=== PATIENT | female | born 1955 | race Caucasian/White ===

== ENCOUNTER → 2018-10-10 | Outpatient (CLI) | payer BC | LOC: PT 11:00 | DX: Z47.1 Aftercare following joint replacement surgery (principal); Z96.652 Presence of left artificial knee joint ==

== ENCOUNTER 2018-11-27 11:15 | Outpatient (RCR) | payer BC | END 2018-11-27 12:00 | disposition still patient (30) | LOC: PT 11:15 | DX: Z47.1 Aftercare following joint replacement surgery (principal); Z96.652 Presence of left artificial knee joint ==

== ENCOUNTER 2019-05-28 11:00 | Outpatient (RCR) | payer BC | END 2019-06-01 | disposition still patient (30) | LOC: PT | DX: S82.002D Unspecified fracture of left patella, subsequent encounter for closed fracture with routine healing (principal); Z98.890 Other specified postprocedural states ==

== ENCOUNTER 2019-07-18 11:00 | Outpatient (RCR) | payer BC | END 2019-07-18 11:30 | disposition still patient (30) | LOC: PT 11:00 | DX: Z48.89 Encounter for other specified surgical aftercare (principal); Z98.890 Other specified postprocedural states ==

== ENCOUNTER 2019-11-16 18:04 | Emergency (ER) | payer BC ==
[2019-11-16] MEDS ORDERED: LEVOTHYROXINE0.05 MG PO (18:39)
[2019-11-16] MEDS ORDERED: VICTOZA 3-0.6 MG/0.1 SQ (18:39)
[2019-11-16] MEDS ORDERED: GLUCOPHAGE PO (18:39)
[2019-11-16] MEDS ORDERED: FOLIXAPURE5000 UNIT PO (18:40)
[2019-11-16] MEDS ORDERED: KRILL OIL500 MG PO (18:40)
[2019-11-16] MEDS ORDERED: COLESTID 1GM1 G PO (18:41)
[2019-11-16] MEDS ORDERED: METAMUCIL POWD575 GM PO (18:42)
[2019-11-16] MEDS ORDERED: CYMBALTA60 M1 PO (18:42)
[2019-11-16] MEDS ORDERED: ZYRTEC ALLERGY10 MG PO (18:42)
[2019-11-16] MEDS ORDERED: PRILOSEC OTC20 MG PO (18:43)
[2019-11-16] MEDS ORDERED: BENADRYL PO (18:43)
[2019-11-16 19:03] LABS: BASO # 0.1 (0.02-0.10); EOS # 0.2 (0.04-0.40); EOS % 2.6 % (1.0-5.0); HEMATOCRIT 42.6 % (37.0-47.0); HEMOGLOBIN 14.1 g/dL (12.5-16.0); LYMPH# 3.3 (1.50-4.00); MEAN CELL VOLUME 97 fl (78-100); MEAN CORPUSCULAR HEMOGLOBIN 32 pg (27-31); MEAN CORPUSCULAR HGB CONC 33 g/dL (33-37); MEAN PLATELET VOLUME 9.7 fl (7.4-10.4); MONO # 0.4 (0.20-0.80); NEU # 2.5 (1.40-6.50); PLATELET COUNT 199 K/mm3 (130-400); RED BLOOD COUNT 4.41 M/mm3 (4.10-5.30); RED CELL DISTRIBUTION WIDTH 12.6 % (11.5-14.5); WHITE BLOOD COUNT 6.5 K/mm3 (4.8-10.8)
[2019-11-16 19:16] LABS: ALBUMIN 4.2 g/dL (3.4-4.8); POTASSIUM 3.6 mmol/L (3.5-5.1)
[2019-11-16 19:17] LABS: SODIUM 137 mmol/L (136-145)
[2019-11-16 19:18] LABS: CALCIUM 9.1 mg/dL (8.3-10.5)
[2019-11-16 19:19] LABS: GLUCOSE 260 mg/dL (65-105); TOTAL PROTEIN 7.5 g/dL (6.2-8.1)
[2019-11-16 19:20] LABS: CARBON DIOXIDE 22 mmol/L (23-31)
[2019-11-16 19:21] LABS: TOTAL BILIRUBIN 0.3 mg/dL (0.2-1.2)
[2019-11-16 19:24] LABS: AST-SGOT 38 U/L (5-34)
[2019-11-16 19:25] LABS: ALT/SGPT 64 U/L (0-55); MAGNESIUM 1.99 mg/dL (1.60-2.60)
[2019-11-16 19:32] LABS: TROPONIN-I < 0.03 ng/mL (<0.030)
[2019-11-16] MEDS ORDERED: PROTONIX TR40 M1 PO (20:11)
[2019-11-16 20:41] VITALS: BP 162/94
== END 2019-11-16 20:41 | disposition home or self-care (01) ==
LOC: ED 18:04
PROVIDERS: Nurse Practitioner Family
DX: R07.89 Other chest pain (principal); K29.00 Acute gastritis without bleeding; R73.9 Hyperglycemia, unspecified; I10 Essential (primary) hypertension; E03.9 Hypothyroidism, unspecified; K21.9 Gastro-esophageal reflux disease without esophagitis; Z79.890 Hormone replacement therapy; Z79.84 Long term (current) use of oral hypoglycemic drugs
CPT/HCPCS: J1885; J7030

== ENCOUNTER → 2020-02-27 | Outpatient (CLI) | payer BC ==
[~2020-02-27] MED LIST: BENADRYL PO; COLESTID 1GM1 G PO; CYMBALTA60 M1 PO; FOLIXAPURE5000 UNIT PO; GLUCOPHAGE PO; KRILL OIL500 MG PO; LEVOTHYROXINE0.05 MG PO; METAMUCIL POWD575 GM PO; PRILOSEC OTC20 MG PO; PROTONIX TR40 M1 PO; VICTOZA 3-0.6 MG/0.1 SQ; ZYRTEC ALLERGY10 MG PO
== END ==
LOC: LAB 12:58
DX: E11.9 Type 2 diabetes mellitus without complications (principal); E03.9 Hypothyroidism, unspecified

== ENCOUNTER → 2020-05-03 | Outpatient (CLI) | payer MEDICARE, BC | LOC: LAB 10:25 | DX: N30.01 Acute cystitis with hematuria (principal) ==

== ENCOUNTER 2020-06-28 13:30 | Outpatient (RCR) | payer MEDICARE, BC | END 2020-07-14 17:00 | disposition home or self-care (01) | LOC: PT 13:30 | DX: M25.552 Pain in left hip (principal) ==

== ENCOUNTER → 2020-07-01 | Outpatient (CLI) | payer MEDICARE, BC | LOC: LAB 14:22 | DX: E11.9 Type 2 diabetes mellitus without complications (principal) ==

== ENCOUNTER → 2020-09-29 | Outpatient (CLI) | payer MEDICARE, BC ==
[2020-09-30 13:11] LABS: ANA SCREEN with REFLEX Negative (Negative)
== END ==
LOC: LAB 11:19
PROVIDERS: Family Medicine
DX: E11.9 Type 2 diabetes mellitus without complications (principal); E03.9 Hypothyroidism, unspecified; M06.9 Rheumatoid arthritis, unspecified

== ENCOUNTER → 2020-09-29 | Outpatient (CLI) | payer MEDICARE, BC | LOC: MAMMO 11:13 | DX: Z12.31 Encounter for screening mammogram for malignant neoplasm of breast (principal); Z85.3 Personal history of malignant neoplasm of breast; Z92.3 Personal history of irradiation; Z98.890 Other specified postprocedural states ==

== ENCOUNTER → 2020-10-27 | Outpatient (CLI) | payer MEDICARE, BC | LOC: LAB 12:18 | DX: R30.9 Painful micturition, unspecified (principal) ==

== ENCOUNTER → 2020-12-06 | Outpatient (CLI) | payer MEDICARE, BC | LOC: RAD 09:30 | DX: N30.20 Other chronic cystitis without hematuria (principal) ==

== ENCOUNTER → 2020-12-29 | Outpatient (CLI) | payer MEDICARE, BC | LOC: RAD 10:42 | DX: M77.31 Calcaneal spur, right foot (principal) ==

== ENCOUNTER → 2021-01-18 | Outpatient (CLI) | payer MEDICARE, BC ==
[2021-01-18 10:27] LABS: BASO # 0.03 K/mm3 (0.02-0.10); EOS # 0.21 K/mm3 (0.04-0.40); EOS % 3.9 % (1.0-5.0); HEMATOCRIT 47.3 % (37.0-47.0); HEMOGLOBIN 15.8 g/dL (12.5-16.0); LYMPH# 2.46 K/mm3 (1.50-4.00); MEAN CELL VOLUME 97 fl (78-100); MEAN CORPUSCULAR HEMOGLOBIN 33 pg (27-31); MEAN CORPUSCULAR HGB CONC 33 g/dL (33-37); MEAN PLATELET VOLUME 9.7 fl (7.4-10.4); MONO # 0.35 K/mm3 (0.20-0.80); NEU # 2.34 K/mm3 (1.40-6.50); PLATELET COUNT 194 K/mm3 (130-400); RED BLOOD COUNT 4.86 M/mm3 (4.10-5.30); RED CELL DISTRIBUTION WIDTH 12.5 % (11.5-14.5); WHITE BLOOD COUNT 5.4 K/mm3 (4.8-10.8)
[2021-01-18 10:30] LABS: POTASSIUM 3.9 mmol/L (3.5-5.1)
[2021-01-18 10:31] LABS: CALCIUM 9.4 mg/dL (8.3-10.5)
[2021-01-18 10:33] LABS: TOTAL PROTEIN 7.9 g/dL (6.2-8.1)
[2021-01-18 10:34] LABS: TOTAL BILIRUBIN 0.7 mg/dL (0.2-1.2)
== END ==
LOC: LAB 09:55
PROVIDERS: Nurse Practitioner
DX: R03.0 Elevated blood-pressure reading, without diagnosis of hypertension (principal)

== ENCOUNTER → 2021-02-24 | Outpatient (CLI) | payer MEDICARE, BC ==
[2021-02-24 09:21] LABS: URINE APPEARANCE CLOUDY; URINE BILIRUBIN NEGATIVE (NEGATIVE); URINE COLOR YELLOW; URINE GLUCOSE NEGATIVE (NEGATIVE); URINE KETONE NEGATIVE (NEGATIVE); URINE PROTEIN(semi-quant) TRACE mg/dL (NEGATIVE); URINE UROBILINOGEN NORMAL (NORMAL)
[2021-02-24 09:22] LABS: URINE BLOOD NEGATIVE (NEGATIVE); URINE LEUKOCYTE ESTERASE TRACE (NEGATIVE); URINE NITRATE POSITIVE (NEGATIVE)
== END ==
LOC: LAB 08:50
PROVIDERS: Family Medicine
DX: E11.9 Type 2 diabetes mellitus without complications (principal); N39.0 Urinary tract infection, site not specified

== ENCOUNTER 2021-03-01 09:44 | Outpatient (RCR) | payer MEDICARE, BC | END 2021-03-11 23:59 | disposition home or self-care (01) | LOC: PT 09:44 | DX: M76.61 Achilles tendinitis, right leg (principal) ==

== ENCOUNTER 2021-03-15 10:06 | Outpatient (RCR) | payer MEDICARE, BC | END 2021-04-11 | disposition home or self-care (01) | LOC: PT | DX: M76.61 Achilles tendinitis, right leg (principal) ==

== ENCOUNTER 2021-04-12 09:09 | Outpatient (RCR) | payer MEDICARE, BC | END 2021-05-09 | disposition home or self-care (01) | LOC: PT | DX: M76.61 Achilles tendinitis, right leg (principal); Z98.890 Other specified postprocedural states ==

== ENCOUNTER 2021-05-10 09:33 | Outpatient (RCR) | payer MEDICARE, BC | END 2021-06-09 | disposition still patient (30) | LOC: PT | DX: M76.61 Achilles tendinitis, right leg (principal); Z98.890 Other specified postprocedural states ==

== ENCOUNTER → 2021-05-25 | Outpatient (CLI) | payer MEDICARE, BC | LOC: LAB 08:48 | DX: E11.9 Type 2 diabetes mellitus without complications (principal); J30.9 Allergic rhinitis, unspecified; F32.9 Major depressive disorder, single episode, unspecified; I10 Essential (primary) hypertension; K21.9 Gastro-esophageal reflux disease without esophagitis; E03.9 Hypothyroidism, unspecified; E66.9 Obesity, unspecified; M19.90 Unspecified osteoarthritis, unspecified site ==

== ENCOUNTER → 2021-09-19 | Outpatient (CLI) | payer MEDICARE, BC ==
[2021-09-19 13:43] LABS: ALBUMIN 4.2 g/dL (3.4-4.8); POTASSIUM 4.3 mmol/L (3.5-5.1)
[2021-09-19 13:44] LABS: CALCIUM 9.6 mg/dL (8.3-10.5)
[2021-09-19 13:47] LABS: TOTAL BILIRUBIN 0.6 mg/dL (0.2-1.2)
[2021-09-19 14:36] LABS: URINE APPEARANCE CLEAR; URINE BILIRUBIN NEGATIVE (NEGATIVE); URINE BLOOD NEGATIVE (NEGATIVE); URINE COLOR YELLOW; URINE KETONE NEGATIVE (NEGATIVE); URINE LEUKOCYTE ESTERASE NEGATIVE (NEGATIVE); URINE NITRATE NEGATIVE (NEGATIVE); URINE PROTEIN(semi-quant) TRACE (NEGATIVE); URINE UROBILINOGEN NORMAL (NORMAL); URINE WBC 0-1 /hpf (0-3)
[2021-09-19 15:03] LABS: BASO # 0.04 K/mm3 (0.02-0.10); EOS # 0.12 K/mm3 (0.04-0.40); EOS % 2.4 % (1.0-5.0); HEMATOCRIT 43.5 % (37.0-47.0); HEMOGLOBIN 14.7 g/dL (12.5-16.0); LYMPH# 2.04 K/mm3 (1.50-4.00); MEAN CELL VOLUME 98 fl (78-100); MEAN CORPUSCULAR HEMOGLOBIN 33 pg (27-31); MEAN CORPUSCULAR HGB CONC 34 g/dL (33-37); MEAN PLATELET VOLUME 9.9 fl (7.4-10.4); MONO # 0.27 K/mm3 (0.20-0.80); NEU # 2.47 K/mm3 (1.40-6.50); PLATELET COUNT 214 K/mm3 (130-400); RED BLOOD COUNT 4.46 M/mm3 (4.10-5.30); RED CELL DISTRIBUTION WIDTH 12.2 % (11.5-14.5); WHITE BLOOD COUNT 4.9 K/mm3 (4.8-10.8)
== END ==
LOC: LAB 11:38
PROVIDERS: Family Medicine
DX: C50.411 Malignant neoplasm of upper-outer quadrant of right female breast (principal); R10.9 Unspecified abdominal pain; E11.9 Type 2 diabetes mellitus without complications; E03.9 Hypothyroidism, unspecified; J30.9 Allergic rhinitis, unspecified; F32.9 Major depressive disorder, single episode, unspecified; I10 Essential (primary) hypertension; K21.9 Gastro-esophageal reflux disease without esophagitis; E66.9 Obesity, unspecified; M19.90 Unspecified osteoarthritis, unspecified site; R13.10 Dysphagia, unspecified; M25.512 Pain in left shoulder; L60.0 Ingrowing nail

== ENCOUNTER → 2021-09-22 | Outpatient (CLI) | payer MEDICARE, BC | LOC: RAD 12:00 | DX: K76.0 Fatty (change of) liver, not elsewhere classified (principal); R13.10 Dysphagia, unspecified | CPT/HCPCS: Q9967 ==

== ENCOUNTER → 2021-10-04 | Outpatient (CLI) | payer MEDICARE, BC | LOC: MAMMO 08:08 | DX: Z12.31 Encounter for screening mammogram for malignant neoplasm of breast (principal) ==

== ENCOUNTER → 2021-11-09 | Outpatient (CLI) | payer MEDICARE, BC ==
[2021-11-09 08:49] LABS: BASO # 0.04 K/mm3 (0.02-0.10); EOS # 0.15 K/mm3 (0.04-0.40); EOS % 2.8 % (1.0-5.0); HEMATOCRIT 44.7 % (37.0-47.0); HEMOGLOBIN 14.7 g/dL (12.5-16.0); MEAN CELL VOLUME 99 fl (78-100); MEAN CORPUSCULAR HEMOGLOBIN 33 pg (27-31); MEAN CORPUSCULAR HGB CONC 33 g/dL (33-37); MEAN PLATELET VOLUME 9.7 fl (7.4-10.4); MONO # 0.36 K/mm3 (0.20-0.80); NEU # 2.39 K/mm3 (1.40-6.50); PLATELET COUNT 201 K/mm3 (130-400); RED BLOOD COUNT 4.53 M/mm3 (4.10-5.30); RED CELL DISTRIBUTION WIDTH 12.5 % (11.5-14.5); TOTAL PROTEIN 7.6 g/dL (6.2-8.1); WHITE BLOOD COUNT 5.4 K/mm3 (4.8-10.8)
[2021-11-09 08:51] LABS: TOTAL BILIRUBIN 0.7 mg/dL (0.2-1.2)
[2021-11-09 23:46] LABS: HEPATITIS C ANTIBODY Negative (Negative)
== END ==
LOC: LAB 08:18
PROVIDERS: Family Medicine
DX: Z00.00 Encounter for general adult medical examination without abnormal findings (principal); E78.5 Hyperlipidemia, unspecified; E11.9 Type 2 diabetes mellitus without complications; E03.9 Hypothyroidism, unspecified; E55.9 Vitamin D deficiency, unspecified

== ENCOUNTER → 2021-11-15 | Outpatient (CLI) | payer MEDICARE, BC | LOC: RAD 07:46 | DX: K76.0 Fatty (change of) liver, not elsewhere classified (principal); R74.01 Elevation of levels of liver transaminase levels; Z90.49 Acquired absence of other specified parts of digestive tract ==

== ENCOUNTER → 2022-06-27 | Outpatient (CLI) | payer MEDICARE, BC | LOC: RAD 10:22 | DX: M18.12 Unilateral primary osteoarthritis of first carpometacarpal joint, left hand (principal) ==

== ENCOUNTER → 2023-01-01 | Outpatient (CLI) | payer MEDICARE, BC | LOC: LAB 10:13 | DX: N39.0 Urinary tract infection, site not specified (principal) ==

== ENCOUNTER → 2023-02-05 | Outpatient (CLI) | payer MEDICARE, BC | LOC: PT 13:00 | DX: M94.261 Chondromalacia, right knee (principal) ==

== ENCOUNTER → 2023-02-12 | Outpatient (CLI) | payer MEDICARE, BC | LOC: LAB 08:28 | DX: E11.9 Type 2 diabetes mellitus without complications (principal) ==

== ENCOUNTER → 2023-06-18 | Day surgery (SDC) | payer MEDICARE, BC ==
[~2023-06-18] MED LIST changes: +Labetalol 100 MG/20 ML Multi-Dose VIAL ONE; +Lidocaine PF 2% (20 MG/ML) 2 ML VIAL ONE; +hydrALAZINE 20 MG/ML 1 ML VIAL ONE
== END | disposition home or self-care (01) ==
LOC: MSO 08:40
DX: Z12.11 Encounter for screening for malignant neoplasm of colon (principal); D12.3 Benign neoplasm of transverse colon; K52.9 Noninfective gastroenteritis and colitis, unspecified; K63.89 Other specified diseases of intestine
CPT/HCPCS: 00811; J0360; J1920; J2704; J7120

== ENCOUNTER → 2023-07-11 | Outpatient (CLI) | payer MEDICARE, BC ==
[~2023-07-11] MED LIST changes: -Labetalol 100 MG/20 ML Multi-Dose VIAL ONE; -Lidocaine PF 2% (20 MG/ML) 2 ML VIAL ONE; -hydrALAZINE 20 MG/ML 1 ML VIAL ONE
[2023-07-11 10:50] LABS: BASO # 0.03 K/mm3 (0.02-0.10); EOS # 0.13 K/mm3 (0.04-0.40); EOS % 2.8 % (1.0-5.0); HEMATOCRIT 41.6 % (37.0-47.0); HEMOGLOBIN 13.8 g/dL (12.5-16.0); LYMPH# 2.04 K/mm3 (1.50-4.00); MEAN CELL VOLUME 99 fl (78-100); MEAN CORPUSCULAR HEMOGLOBIN 33 pg (27-31); MEAN CORPUSCULAR HGB CONC 33 g/dL (33-37); MEAN PLATELET VOLUME 9.2 fl (7.4-10.4); MONO # 0.27 K/mm3 (0.20-0.80); NEU # 2.17 K/mm3 (1.40-6.50); PLATELET COUNT 179 K/mm3 (130-400); RED CELL DISTRIBUTION WIDTH 12.1 % (11.5-14.5); WHITE BLOOD COUNT 4.7 K/mm3 (4.8-10.8)
[2023-07-11 11:00] LABS: CALCIUM 9.8 mg/dL (8.3-10.5)
[2023-07-11 11:01] LABS: TOTAL PROTEIN 7.3 g/dL (6.2-8.1)
[2023-07-11 11:02] LABS: PROTHROMBIN TIME 11.3 SECONDS (9.0-12.0)
[2023-07-11 11:03] LABS: TOTAL BILIRUBIN 0.4 mg/dL (0.2-1.2)
[2023-07-11 11:14] LABS: URINE APPEARANCE CLEAR (CLEAR); URINE COLOR YELLOW (YELLOW)
[2023-07-11 11:15] LABS: PH-URINE 5.5 (5.0 - 8.0); URINE BILIRUBIN NEGATIVE (NEGATIVE); URINE BLOOD NEGATIVE (NEGATIVE); URINE GLUCOSE 2+ (NEGATIVE); URINE KETONE TRACE (NEGATIVE); URINE LEUKOCYTE ESTERASE NEGATIVE (NEGATIVE); URINE NITRATE NEGATIVE (NEGATIVE); URINE PROTEIN(semi-quant) NEGATIVE (NEGATIVE)
[2023-07-11 11:16] LABS: URINE MUCUS PRESENT (NOT PRESENT)
== END ==
LOC: LAB 10:32
PROVIDERS: Family Medicine
DX: Z01.89 Encounter for other specified special examinations (principal); Z13.1 Encounter for screening for diabetes mellitus; Z13.29 Encounter for screening for other suspected endocrine disorder; E78.5 Hyperlipidemia, unspecified; E03.9 Hypothyroidism, unspecified; E11.9 Type 2 diabetes mellitus without complications; K90.9 Intestinal malabsorption, unspecified

== ENCOUNTER → 2023-09-17 | Outpatient (CLI) | payer MEDICARE, BC ==
[2023-09-17 10:55] LABS: URINE APPEARANCE CLEAR (CLEAR); URINE COLOR YELLOW (YELLOW)
[2023-09-17 10:56] LABS: URINE BILIRUBIN NEGATIVE (NEGATIVE); URINE BLOOD NEGATIVE (NEGATIVE); URINE GLUCOSE NEGATIVE (NEGATIVE); URINE KETONE NEGATIVE (NEGATIVE); URINE LEUKOCYTE ESTERASE NEGATIVE (NEGATIVE); URINE NITRATE NEGATIVE (NEGATIVE); URINE PROTEIN(semi-quant) NEGATIVE (NEGATIVE)
[2023-09-17 11:00] LABS: URINE MUCUS PRESENT (NOT PRESENT)
== END ==
LOC: LAB 09:57
PROVIDERS: Family Medicine
DX: N39.0 Urinary tract infection, site not specified (principal)

== ENCOUNTER → 2023-09-26 | Outpatient (CLI) | payer MEDICARE, BC | LOC: RAD 08:00 | DX: M25.461 Effusion, right knee (principal); Z96.653 Presence of artificial knee joint, bilateral ==

== ENCOUNTER → 2023-10-01 | Outpatient (CLI) | payer MEDICARE, BC ==
[2023-10-01 11:04] LABS: ALBUMIN 4.1 g/dL (3.4-4.8)
[2023-10-01 11:06] LABS: CALCIUM 10.1 mg/dL (8.3-10.5)
[2023-10-01 11:07] LABS: TOTAL PROTEIN 7.4 g/dL (6.2-8.1)
[2023-10-01 11:09] LABS: TOTAL BILIRUBIN 0.5 mg/dL (0.2-1.2)
== END ==
LOC: LAB 10:46
PROVIDERS: Internal Medicine
DX: C50.411 Malignant neoplasm of upper-outer quadrant of right female breast (principal)

== ENCOUNTER → 2023-10-31 | Outpatient (CLI) | payer MEDICARE, BC ==
--- NOTE | 2023-10-31 12:15 | NUR ---
Pt ambulates to ED1. Holter monitor placed per order. Explained setup and recording process. Showed pt event button and explained use. Pt given add'l electrodes x 3 and picture of placement included with event recording ppw. Pt instructed to keep equipment dry and return on 11/02/23 at 1200. Called [facility] to remind provider that holter monitors available are 48 hour only[address] VO to place 48 hour monitor. OBED Dumont/[facility] Dotson/Larisa Laguerre APRN.
== END ==
LOC: LAB 11:27
DX: E11.9 Type 2 diabetes mellitus without complications (principal); R00.2 Palpitations; Z87.440 Personal history of urinary (tract) infections

== ENCOUNTER → 2023-11-13 | Outpatient (CLI) | payer MEDICARE, BC ==
[2023-11-13 17:19] LABS: PH-URINE 5.5 (5.0 - 8.0); URINE APPEARANCE TURBID (CLEAR); URINE COLOR YELLOW (YELLOW); URINE PROTEIN(semi-quant) 2+ (NEGATIVE)
[2023-11-13 17:21] LABS: URINE BILIRUBIN NEGATIVE (NEGATIVE); URINE BLOOD 3+ (NEGATIVE); URINE GLUCOSE 1+ (NEGATIVE); URINE KETONE 1+ (NEGATIVE); URINE LEUKOCYTE ESTERASE 1+ (NEGATIVE); URINE NITRATE NEGATIVE (NEGATIVE)
[2023-11-13 17:22] LABS: URINE WBC >50 /hpf (0-3)
== END ==
LOC: LAB 16:26
PROVIDERS: Nurse Practitioner Family
DX: R30.0 Dysuria (principal)

== ENCOUNTER → 2023-12-04 | Outpatient (CLI) | payer MEDICARE, BC ==
[2023-12-04 11:03] LABS: URINE APPEARANCE CLOUDY (CLEAR); URINE BILIRUBIN NEGATIVE (NEGATIVE); URINE BLOOD TRACE (NEGATIVE); URINE COLOR YELLOW (YELLOW); URINE GLUCOSE NEGATIVE (NEGATIVE); URINE KETONE NEGATIVE (NEGATIVE); URINE LEUKOCYTE ESTERASE 1+ (NEGATIVE); URINE MUCUS PRESENT (NOT PRESENT); URINE NITRATE NEGATIVE (NEGATIVE); URINE PROTEIN(semi-quant) 2+ (NEGATIVE); URINE WBC >50 /hpf (0-3)
== END ==
LOC: LAB 10:18
PROVIDERS: Nurse Practitioner
DX: N39.0 Urinary tract infection, site not specified (principal)

== ENCOUNTER → 2024-02-21 | Outpatient (CLI) | payer MEDICARE, BC ==
[2024-02-21 11:31] LABS: BASO # 0.04 K/mm3 (0.02-0.10); EOS # 0.14 K/mm3 (0.04-0.40); EOS % 2.9 % (1.0-5.0); HEMATOCRIT 45.6 % (37.0-47.0); HEMOGLOBIN 15.1 g/dL (12.5-16.0); LYMPH# 1.84 K/mm3 (1.50-4.00); MEAN CELL VOLUME 98 fl (78-100); MEAN CORPUSCULAR HEMOGLOBIN 33 pg (27-31); MEAN CORPUSCULAR HGB CONC 33 g/dL (33-37); MONO # 0.28 K/mm3 (0.20-0.80); NEU # 2.47 K/mm3 (1.40-6.50); PLATELET COUNT 206 K/mm3 (130-400); RED BLOOD COUNT 4.64 M/mm3 (4.10-5.30); RED CELL DISTRIBUTION WIDTH 12.1 % (11.5-14.5); WHITE BLOOD COUNT 4.8 K/mm3 (4.8-10.8)
[2024-02-21 11:42] LABS: ALBUMIN 4.4 g/dL (3.4-4.8)
[2024-02-21 11:43] LABS: CALCIUM 10.3 mg/dL (8.3-10.5)
[2024-02-21 11:44] LABS: TOTAL PROTEIN 8.2 g/dL (6.2-8.1)
[2024-02-21 11:46] LABS: TOTAL BILIRUBIN 0.7 mg/dL (0.2-1.2)
== END ==
LOC: LAB 11:13
PROVIDERS: Family Medicine
DX: I10 Essential (primary) hypertension (principal); E03.9 Hypothyroidism, unspecified; E11.9 Type 2 diabetes mellitus without complications; E55.9 Vitamin D deficiency, unspecified; E78.5 Hyperlipidemia, unspecified

== ENCOUNTER → 2024-04-01 | Outpatient (CLI) | payer MEDICARE, BC | LOC: MAMMO 14:30 | DX: Z13.820 Encounter for screening for osteoporosis (principal); M85.80 Other specified disorders of bone density and structure, unspecified site ==

== ENCOUNTER → 2024-05-22 | Outpatient (CLI) | payer MEDICARE, BC | LOC: LAB 10:45 | DX: E11.9 Type 2 diabetes mellitus without complications (principal) ==